=== PATIENT | male | born 2000 | race Caucasian/White ===

== ENCOUNTER 2020-06-09 19:40 | Emergency (ER) | payer BC ==
[2020-06-09 20:04] VITALS: BP 146/99; PULSE 100
[2020-06-09] MEDS ORDERED: Diphtheria,Pertussis(Acell),Tetanus Vaccine 0.5 ML SDV IM ONE (20:27)
--- NOTE | 2020-06-09 22:09 | ER ---
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 This morning, as he was getting off a tractor, he slipped and twisted his ankle. He heard a popping noise. He is pointing to the lateral side of the ankle when describing area of pain. He denies any additional injuries. His foot and toes are not numb and there was no bleeding. OBJECTIVE: GENERAL APPEARANCE: The patient is awake and alert. No obvious distress. He is not taking any Tylenol or ibuprofen today. He stated that he just continued working. VITAL SIGNS: Reviewed. Blood pressure is a little bit high. He rates his pain a 7.5/10. Examining the right ankle reveals mild swelling around the lateral malleolus. The skin is intact. There is no discoloration. There is no tenderness with palpation of the mid or distal foot. LABORATORY DATA AND X-RAY: X-ray of the right ankle was obtained. I do not see any fracture or acute bony abnormality. DIAGNOSIS: Sprain, right ankle. TREATMENT PLAN: An Henry wrap will be applied by nursing staff. Activity should be light duty as tolerated for the next few days. He is to try to keep his injured ankle elevated as much as possible, and he is to start using ibuprofen 600-800 mg t.i.d. for 3-4 days and then start weaning off it. RICE therapy was discussed more at length. He will be given a tetanus shot here as well and followup is p.r.n. LORY/BRITTNI /[id number]
--- NOTE | 2020-06-09 22:31 | CR ---
CLINICAL DATA: Twisted ankle. RIGHT ANKLE, 09 JUNE 2020: There is soft tissue swelling over the lateral malleolus. No acute fracture or dislocation. No lytic or blastic bone lesions. Job: [id number] [facility]
== END 2020-06-09 20:37 ==
LOC: LB.ED 19:40
DX: S93.401A Sprain of unspecified ligament of right ankle, initial encounter (principal); Z23 Encounter for immunization; X50.1XXA Overexertion from prolonged static or awkward postures, initial encounter; Y92.79 Other farm location as the place of occurrence of the external cause
CPT/HCPCS: 73600-RT; 90471; 90715; 99283-25